=== PATIENT | male | born 1960 | race Caucasian/White ===

== ENCOUNTER → 2016-07-24 | Outpatient (CLI) | payer MEDICARE, OTHER ==
--- NOTE | 2016-07-24 15:19 | US ---
EXAMINATION TYPE: US extremity non vasc mass DE[place]IN DATE OF EXAM: 07/24/2016 3:05 PM COMPARISON: NONE CLINICAL HISTORY: history or rt hand amputated 1999 for cancer for past year 2016, palpable lumps rt humerus and left femur TECHNOLOGIST IMPRESSION: rt humerus most superior of 2 lumps , 2.1 x 0.66 x 1.5 cm, non vascular bot h palpables 2nd palpable inferior 1.5 x 1.2 x 0.37 cm. Left femur, palpable 3.8 x 0.9 x 2.8 cm n on vascular all appear superficial IMPRESSION: Probable lipomas. Correlate clinically.
== END | disposition home or self-care (01) ==
LOC: RADUSWWP 14:37
PROVIDERS: ATTEND Family Medicine
DX: R22.31 Localized swelling, mass and lump, right upper limb (principal); R22.42 Localized swelling, mass and lump, left lower limb
CPT/HCPCS: 76882

== ENCOUNTER → 2021-12-31 | Outpatient (CLI) | payer MEDICARE, OTHER ==
--- NOTE | 2021-12-31 19:08 | CA ---
Transthoracic Echo Report Name: Silvestre Weaver Age: 61 Gender: M : 1960 Exam Date: 12/31/2021 08:38 Exam Location: [facility] Ht (in): 78 Wt (lb): 175 Ordering Physician: Fuentes Zhu MD Attending/Referring Phys: Fuentes Zhu MD [employer] Developer Ros Acosta [facility] Procedure CPT: Indications: I48.91 UNSPECIFIED ATRIAL FIBRILLATION Cardiac Hx: Technical Quality: Fair Contrast 1: Total Dose (mL): Contrast 2: Total Dose (mL): MEASUREMENTS (Male / Female) Normal Values 2D ECHO LV Diastolic Diameter PLAX 4.9 cm 4.2 - 5.9 / 3.9 - 5.3 cm LV Systolic Diameter PLAX 3.8 cm IVS Diastolic Thickness 0.8 cm 0.6 - 1.0 / 0.6 - 0.9 cm LVPW Diastolic Thickness 0.9 cm 0.6 - 1.0 / 0.6 - 0.9 cm LV Relative Wall Thickness 0.4 LA Volume 57.0 cm??? 18 - 58 / 22 - 52 cm??? M-MODE Aortic Root Diameter MM 3.2 cm AV Cusp Separation MM 1.7 cm DOPPLER AV Peak Velocity 112.8 cm/s AV Peak Gradient 5.1 mmHg LVOT Peak Velocity 74.0 cm/s LVOT Peak Gradient 2.2 mmHg FINDINGS Left Ventricle Left ventricular cavity size normal. Left ventricular wall thickness normal. Left ventricular ejection fraction is estimated at 50 %. Could not evaluate diastolic function due to A-fib. Right Ventricle Normal right ventricular size and function. Right ventricular systolic pressure within normal limits. Right Atrium Normal right atrial size. Left Atrium Normal left atrial size. No evidence for an atrial septal defect. Mitral Valve Structurally normal mitral valve. No mitral stenosis, regurgitation or prolapse. Aortic Valve Trileaflet aortic valve. No aortic valve stenosis or regurgitation. Tricuspid Valve Structurally normal tricuspid valve. Trace tricuspid regurgitation. Pulmonic Valve Structurally normal pulmonic valve. Trace pulmonic regurgitation. Pericardium No pericardial effusion. Aorta Normal size aortic root and proximal ascending aorta. CONCLUSIONS Normal LV size and fair systolic function patient is in atrial fibrillation. No significant abnormality on Doppler exam. No pericardial effusion. Right- sided pressures were not quantified probably unremarkable Previewed by: Dr. Yasemin Sales MD (Electronically Signed) Final Date: 31 December 2021 19:07
== END | disposition home or self-care (01) ==
LOC: RADECHMAIN 08:32
PROVIDERS: ATTEND Family Medicine
DX: I37.1 Nonrheumatic pulmonary valve insufficiency (principal); I07.1 Rheumatic tricuspid insufficiency
CPT/HCPCS: 93306